=== PATIENT | male | born 1970 | race Caucasian/White ===

== ENCOUNTER 2020-12-23 03:48 | Emergency (ER) | payer SELFPAY ==
[2020-12-23] MEDS ORDERED: AUGMENTIN 875-1 EACH PO (04:11)
== END 2020-12-23 04:25 | disposition home or self-care (01) ==
LOC: FER 03:48
DX: S51.852A Open bite of left forearm, initial encounter (principal); S51.851A Open bite of right forearm, initial encounter; F17.200 Nicotine dependence, unspecified, uncomplicated; Z23 Encounter for immunization; W54.0XXA Bitten by dog, initial encounter; Y92.009 Unspecified place in unspecified non-institutional (private) residence as the place of occurrence of the external cause
CPT/HCPCS: 90471; 90715